=== PATIENT | female | born 1940 ===

== ENCOUNTER → 2024-01-05 | Outpatient (CLI) | payer MEDICARE, OTHER ==
[2024-01-05 16:16] LABS: Source, Urine Voided
[2024-01-05 17:02] LABS: Appearance, Urine Cloudy (Clear); Bilirubin, Urine Neg (Neg); Blood, Urine 2+ (Neg); Color, Urine Yellow (P-Yellow); Glucose Qualitative, Urine Neg (Neg); Ketones, Urine Neg (Neg); Leukocyte Esterase, Urine 3+ (Neg); Nitrite, Urine Neg (Neg); Protein, Urine 2+ (Neg); Specific Gravity, Urine 1.015 (1.003-1.022); Urobilinogen, Urine NORM (Normal)
[2024-01-05 17:41] LABS: Bacteria Many /hpf; Red Blood Cells, Urine 0-2 /hpf (0-2); Squamous Epithelial Cells Rare /hpf (Few); Transitional Epithelial Cells Rare /hpf (0-Rare); White Blood Cells, Urine TNTC /hpf (0-5)
== END | disposition home or self-care (01) ==
LOC: LAB SHORT 16:14
PROVIDERS: Family Medicine
DX: N39.0 Urinary tract infection, site not specified (principal)
CPT/HCPCS: 81001; 87077; 87086; 87186

== ENCOUNTER → 2024-03-15 | Outpatient (CLI) | payer MEDICARE, OTHER ==
[2024-03-15 13:44] LABS: Source, Urine Voided
[2024-03-15 15:19] LABS: Appearance, Urine Hazy (Clear); Bilirubin, Urine Neg (Neg); Blood, Urine 1+ (Neg); Color, Urine Yellow (P-Yellow); Glucose Qualitative, Urine Neg (Neg); Ketones, Urine Neg (Neg); Leukocyte Esterase, Urine 3+ (Neg); Nitrite, Urine Pos (Neg); Protein, Urine 1+ (Neg); Specific Gravity, Urine 1.015 (1.003-1.022); Urobilinogen, Urine NORM (Normal)
[2024-03-15 15:47] LABS: White Blood Cells, Urine TNTC /hpf (0-5)
[2024-03-15 15:51] LABS: Bacteria Many /hpf; Squamous Epithelial Cells Rare /hpf (Few); Transitional Epithelial Cells Rare /hpf (0-Rare)
== END ==
LOC: LAB SHORT 13:41 → LAB 13:41
PROVIDERS: Family Medicine
DX: N39.0 Urinary tract infection, site not specified (principal)
CPT/HCPCS: 81001; 87077; 87086; 87186

== ENCOUNTER → 2024-07-20 | Outpatient (CLI) | payer MEDICARE, OTHER ==
[2024-07-21 12:01] LABS: Source, Urine Voided
[2024-07-21 12:53] LABS: Appearance, Urine Turbid (Clear); Bilirubin, Urine Neg (Neg); Blood, Urine 3+ (Neg); Color, Urine Yellow (P-Yellow); Glucose Qualitative, Urine Neg (Neg); Ketones, Urine Neg (Neg); Leukocyte Esterase, Urine 3+ (Neg); Nitrite, Urine Neg (Neg); Protein, Urine 2+ (Neg); Specific Gravity, Urine 1.015 (1.003-1.022); Urobilinogen, Urine NORM (Normal)
[2024-07-21 13:03] LABS: White Blood Cells, Urine TNTC /hpf (0-5)
[2024-07-21 13:04] LABS: Bacteria Many /hpf; Renal Epithelial Rare /hpf (0-Rare); Squamous Epithelial Cells Few /hpf (Few)
== END ==
LOC: LAB SHORT 11:55 → LAB 11:55
PROVIDERS: Family Medicine
DX: N39.0 Urinary tract infection, site not specified (principal)
CPT/HCPCS: 81001; 87077; 87086; 87186

== ENCOUNTER → 2024-08-18 | Outpatient (CLI) | payer MEDICARE, OTHER ==
[2024-08-21 09:01] LABS: Source, Urine Clean Catch
[2024-08-21 09:15] LABS: Appearance, Urine Cloudy (Clear); Bilirubin, Urine Neg (Neg); Blood, Urine 3+ (Neg); Color, Urine Yellow (P-Yellow); Glucose Qualitative, Urine Neg (Neg); Ketones, Urine Neg (Neg); Leukocyte Esterase, Urine 3+ (Neg); Nitrite, Urine Neg (Neg); Protein, Urine 3+ (Neg); Urobilinogen, Urine NORM (Normal)
[2024-08-21 11:07] LABS: Bacteria Many /hpf; White Blood Cells, Urine TNTC /hpf (0-5)
[2024-08-21 11:11] LABS: Red Blood Cells, Urine 0-2 /hpf (0-2); Squamous Epithelial Cells Mod /hpf (Few)
== END ==
LOC: LAB SHORT 11:00 → LAB 11:00
PROVIDERS: Family Medicine
DX: N39.0 Urinary tract infection, site not specified (principal)
CPT/HCPCS: 81001; 87077; 87086; 87186

== ENCOUNTER → 2024-09-19 | Outpatient (CLI) | payer MEDICARE, OTHER ==
[2024-09-19 12:44] LABS: BASOPHILS ABSOLUTE AUTO 0.05 K/mm3 (0.00-0.23); BASOPHILS PERCENT AUTO 0 % (0-2); EOSINOPHILS ABSOLUTE AUTO 0.15 K/mm3 (0.00-0.68); EOSINOPHILS PERCENT AUTO 1 % (0-6); Hematocrit 30.8 % (33.0-51.0); Hemoglobin 9.6 g/dL (11.5-16.0); IMMATURE GRAN ABSOLUTE AUTO 0.06 K/mm3 (0.00-0.10); IMMATURE GRAN PERCENT AUTO 0 % (0-1); LYMPHOCYTES ABSOLUTE AUTO 1.91 K/mm3 (0.84-5.20); LYMPHOCYTES PERCENT AUTO 13 % (21-46); MONOCYTES ABSOLUTE AUTO 0.99 K/mm3 (0.16-1.47); MONOCYTES PERCENT AUTO 7 % (4-13); Mean Corpuscular HGB 29.4 pg (26.0-34.0); Mean Corpuscular HGB Conc 31.2 g/dL (31.5-36.5); Mean Corpuscular Volume 94 fL (80-100); Mean Platelet Volume 11.3 fL (9.1-12.4); NEUTROPHILS ABSOLUTE AUTO 11.44 K/mm3 (1.96-9.15); NEUTROPHILS PERCENT AUTO 78 % (41-73); Platelet Count 236 K/mm3 (150-400); RDW Coefficient Variation 14.9 % (11.7-14.2); RDW Standard Deviation 51.9 fL (35.1-46.3); Red Blood Cell Count 3.27 M/mm3 (3.80-5.20)
[2024-09-19 13:53] LABS: Alanine Aminotransfer (ALT/SGP 16 U/L (12-78); Albumin, Blood 3.2 g/dL (3.4-5.0); Albumin/Globulin Ratio 0.7 (0.8-1.8); Alk Phos 97 U/L (50-136); Anion Gap 14 mmol/L (3-11); Aspartate Aminotrans (AST/SGOT 12 U/L (12-37); Bilirubin, Total 0.3 mg/dL (0.1-1.0); Blood Urea Nitrogen 42 mg/dL (8-24); Bun/Creatinine Ratio 40.8 (12.0-20.0); CHOL/HDL RATIO 4.6; CO2, Blood 25 mmol/L (21-32); Calcium, Blood 8.9 mg/dL (8.5-10.1); Chloride, Blood 99 mmol/L (98-108); Cholesterol 212 mg/dL (50-200); Creatinine, Blood 1.03 mg/dL (0.40-1.00); Globulin, Blood 4.8 g/dL (2.2-4.0); Glomerular Filtration Rate 54 (60-); Glucose, Blood 225 mg/dL (70-99); HDL Cholesterol 46 mg/dL (>39); LDL/HDL RATIO 2.8; Low Density Lipoprotein Chol 128 mg/dL (0-110); Potassium, Blood 4.2 mmol/L (3.5-5.5); Sodium, Blood 134 mmol/L (136-145); Triglycerides 190 mg/dL (30-160); Very Low Density Lipoprot Chol 38 mg/dL (6-32)
== END | disposition home or self-care (01) ==
LOC: LAB 11:32 → LAB SHORT 11:32
PROVIDERS: Family Medicine
DX: I63.9 Cerebral infarction, unspecified (principal); E11.9 Type 2 diabetes mellitus without complications; E55.9 Vitamin D deficiency, unspecified
CPT/HCPCS: 80053; 80061; 82306; 83036; 84443; 85025

== ENCOUNTER → 2024-09-27 | Outpatient (CLI) | payer MEDICARE, OTHER ==
[2024-09-27 15:54] LABS: Source, Urine Clean Catch
[2024-09-27 19:07] LABS: Appearance, Urine Turbid (Clear); Bilirubin, Urine Neg (Neg); Blood, Urine 3+ (Neg); Glucose Qualitative, Urine Neg (Neg); Ketones, Urine Neg (Neg); Leukocyte Esterase, Urine 3+ (Neg); Nitrite, Urine Pos (Neg); Protein, Urine 2+ (Neg); Urobilinogen, Urine NORM (Normal)
[2024-09-27 20:30] LABS: Bacteria Many /hpf; Color, Urine Pale Yellow (P-Yellow); Mucus Light (0-Heavy); Red Blood Cells, Urine 0-2 /hpf (0-2); Squamous Epithelial Cells Few /hpf (Few); Transitional Epithelial Cells Rare /hpf (0-Rare); White Blood Cells, Urine TNTC /hpf (0-5)
== END ==
LOC: LAB 15:51 → LAB SHORT 15:51
PROVIDERS: Family Medicine
DX: N39.0 Urinary tract infection, site not specified (principal)
CPT/HCPCS: 81001; 87077; 87086; 87186

== ENCOUNTER → 2025-01-26 | Outpatient (CLI) | payer MEDICARE, OTHER ==
[2025-01-26 15:08] LABS: Bilirubin, Urine Neg (Neg); Color, Urine Yellow (P-Yellow); Glucose Qualitative, Urine Neg (Neg); Ketones, Urine Neg (Neg); Leukocyte Esterase, Urine 3+ (Neg); Protein, Urine 3+ (Neg); Specific Gravity, Urine 1.025 (1.003-1.022); Urobilinogen, Urine NORM (Normal)
[2025-01-26 15:19] LABS: White Blood Cells, Urine TNTC /hpf (0-5)
== END ==
LOC: LAB SHORT 14:39 → LAB 14:39
PROVIDERS: Family Medicine
DX: N39.0 Urinary tract infection, site not specified (principal)
CPT/HCPCS: 81001; 87077; 87086; 87186

== ENCOUNTER 2025-02-03 00:41 | Day surgery (SDC) | payer MEDICARE, OTHER ==
[2025-02-03] MEDS ORDERED: Ertapenem Sodium 1,000 MG in NS 50 ML IV SCH (01:00)
[2025-02-03 10:10] VITALS: BP 132/77
[2025-02-03] MEDS ORDERED: Acetaminophen650 M1 PO (11:12)
[2025-02-03] MEDS ORDERED: ALBU90OI INH (11:13)
[2025-02-03] MEDS ORDERED: CLOP75 PO (11:14)
[2025-02-03] MEDS ORDERED: ALUM-MAG HYDROX30 M1 PO (11:14)
[2025-02-03] MEDS ORDERED: [UNRECOGNIZED DRUG - OTHER] PO (11:15)
[2025-02-03] MEDS ORDERED: ESCITALOPRAM OX10 MG PO (11:15)
[2025-02-03] MEDS ORDERED: METF500 PO (11:16)
[2025-02-03] MEDS ORDERED: EUTHYROX88 MCG PO (11:16)
[2025-02-03] MEDS ORDERED: GLIP5 PO (11:16)
[2025-02-03] MEDS ORDERED: ONDA4 PO (11:17)
[2025-02-03] MEDS ORDERED: NYAMYC1513 TOP (11:17)
[2025-02-03] MEDS ORDERED: OMEP20ER PO (11:17)
[2025-02-03] MEDS ORDERED: VITAMIN D350 MC3 PO (11:18)
[2025-02-03] MEDS ORDERED: RISP.5 PO (11:18)
--- NOTE | 2025-02-03 11:22 | NUR ---
[facility]. PT IN WHEELCHAIR AND STATES SHE DOES NOT AMBULATE. PT REMAINED IN WHEELCHAIR THROUGH HER INFUSION APPT TODAY. PT SEEMS TO BE A POOR HISTORIAN OF HER HEALTHCARE INFORMATION. WHEN ASKED IF SHE HAD ANY MEDICATION ALLERGIES SHE SAID "NOT THAT I'M AWARE OF." RECORDS [facility] INDICATED ALLERGIES TO PCN, ARIPIRAZOLE, CHLORPROMAZINE, AND WOOL. PT RELUCTANT TO ANSWER QUESTIONS WHEN ASKED. PT RELUCTANT TO HAVE IV STARTED BUT EVENTUALLY GAVE ME PERMISSION TO PLACE IV. PAT IN ADMITTING CALLED [facility] FOR TRANSPORT BACK [facility] AT THE END OF THE PT'S APPT.
== END 2025-02-03 10:44 | disposition home or self-care (01) ==
LOC: ATC 00:41
DX: N39.0 Urinary tract infection, site not specified (principal); Z16.12 Extended spectrum beta lactamase (ESBL) resistance; E03.9 Hypothyroidism, unspecified; E11.9 Type 2 diabetes mellitus without complications; Z86.73 Personal history of transient ischemic attack (TIA), and cerebral infarction without residual deficits; Z79.02 Long term (current) use of antithrombotics/antiplatelets; Z79.890 Hormone replacement therapy; Z79.899 Other long term (current) drug therapy
CPT/HCPCS: 96365; J1335

== ENCOUNTER 2025-02-04 02:52 | Day surgery (SDC) | payer MEDICARE, OTHER ==
[~2025-02-04 02:52] MED LIST: ALBU90OI INH; ALUM-MAG HYDROX30 M1 PO; Acetaminophen650 M1 PO; CLOP75 PO; ESCITALOPRAM OX10 MG PO; EUTHYROX88 MCG PO; Ertapenem Sodium 1,000 MG in NS 50 ML IV SCH; GLIP5 PO; METF500 PO; NYAMYC1513 TOP; OMEP20ER PO; ONDA4 PO; RISP.5 PO; VITAMIN D350 MC3 PO; [UNRECOGNIZED DRUG - OTHER] PO
[2025-02-04 10:17] VITALS: BP 102/62
== END 2025-02-04 10:35 | disposition home or self-care (01) ==
LOC: ATC 02:52
DX: N39.0 Urinary tract infection, site not specified (principal); Z16.12 Extended spectrum beta lactamase (ESBL) resistance; L60.0 Ingrowing nail; B35.1 Tinea unguium; I69.398 Other sequelae of cerebral infarction; H53.9 Unspecified visual disturbance; E11.9 Type 2 diabetes mellitus without complications; E03.9 Hypothyroidism, unspecified; F32.A Depression, unspecified; R32 Unspecified urinary incontinence; Z66 Do not resuscitate; Z87.891 Personal history of nicotine dependence; Z79.890 Hormone replacement therapy; Z79.02 Long term (current) use of antithrombotics/antiplatelets; Z79.84 Long term (current) use of oral hypoglycemic drugs; Z79.899 Other long term (current) drug therapy; Z88.0 Allergy status to penicillin; Z88.8 Allergy status to other drugs, medicaments and biological substances
CPT/HCPCS: 96365; J1335

== ENCOUNTER 2025-02-05 10:03 | Day surgery (SDC) | payer MEDICARE, OTHER ==
[2025-02-05 10:12] VITALS: BP 111/59
== END 2025-02-05 10:30 | disposition home or self-care (01) ==
LOC: ATC 10:03
DX: N39.0 Urinary tract infection, site not specified (principal); Z16.12 Extended spectrum beta lactamase (ESBL) resistance; L60.0 Ingrowing nail; B35.1 Tinea unguium; I69.398 Other sequelae of cerebral infarction; H53.9 Unspecified visual disturbance; E11.9 Type 2 diabetes mellitus without complications; F32.A Depression, unspecified; E03.9 Hypothyroidism, unspecified; R32 Unspecified urinary incontinence; Z66 Do not resuscitate; Z87.891 Personal history of nicotine dependence; Z79.890 Hormone replacement therapy; Z79.84 Long term (current) use of oral hypoglycemic drugs; Z79.899 Other long term (current) drug therapy; Z79.02 Long term (current) use of antithrombotics/antiplatelets; Z88.0 Allergy status to penicillin; Z88.8 Allergy status to other drugs, medicaments and biological substances; Z91.048 Other nonmedicinal substance allergy status
CPT/HCPCS: 96365; J1335

== ENCOUNTER 2025-02-06 01:59 | Day surgery (SDC) | payer MEDICARE, OTHER ==
[2025-02-06 10:31] VITALS: BP 138/64
== END 2025-02-06 10:55 | disposition home or self-care (01) ==
LOC: ATC 01:59
DX: N39.0 Urinary tract infection, site not specified (principal); Z16.12 Extended spectrum beta lactamase (ESBL) resistance; L60.0 Ingrowing nail; B35.1 Tinea unguium; I69.398 Other sequelae of cerebral infarction; H53.9 Unspecified visual disturbance; F32.A Depression, unspecified; E03.9 Hypothyroidism, unspecified; E11.9 Type 2 diabetes mellitus without complications; R32 Unspecified urinary incontinence; Z79.84 Long term (current) use of oral hypoglycemic drugs; Z79.899 Other long term (current) drug therapy; Z79.890 Hormone replacement therapy; Z88.0 Allergy status to penicillin; Z88.8 Allergy status to other drugs, medicaments and biological substances
CPT/HCPCS: 96365; J1335

== ENCOUNTER 2025-02-07 02:57 | Day surgery (SDC) | payer MEDICARE, OTHER ==
[2025-02-07 09:40] VITALS: BP 145/57
== END 2025-02-07 10:11 | disposition home or self-care (01) ==
LOC: ATC 02:57
DX: N39.0 Urinary tract infection, site not specified (principal); L60.0 Ingrowing nail; B35.1 Tinea unguium; I69.398 Other sequelae of cerebral infarction; H53.9 Unspecified visual disturbance; E03.9 Hypothyroidism, unspecified; R32 Unspecified urinary incontinence; E11.3511 Type 2 diabetes mellitus with proliferative diabetic retinopathy with macular edema, right eye; E43 Unspecified severe protein-calorie malnutrition; E78.5 Hyperlipidemia, unspecified; F03.918 Unspecified dementia, unspecified severity, with other behavioral disturbance; I10 Essential (primary) hypertension; K21.9 Gastro-esophageal reflux disease without esophagitis; K22.5 Diverticulum of esophagus, acquired; R25.1 Tremor, unspecified; R62.7 Adult failure to thrive; Z16.12 Extended spectrum beta lactamase (ESBL) resistance; Z66 Do not resuscitate; Z79.02 Long term (current) use of antithrombotics/antiplatelets; Z79.84 Long term (current) use of oral hypoglycemic drugs; Z79.890 Hormone replacement therapy; Z79.899 Other long term (current) drug therapy; Z88.0 Allergy status to penicillin; Z88.8 Allergy status to other drugs, medicaments and biological substances; Z91.048 Other nonmedicinal substance allergy status
CPT/HCPCS: 96365; J1335

== ENCOUNTER 2025-02-08 00:44 | Day surgery (SDC) | payer MEDICARE, OTHER ==
[~2025-02-08 00:44] MED LIST changes: -Ertapenem Sodium 1,000 MG in NS 50 ML IV SCH
[2025-02-08] MEDS ORDERED: Ertapenem Sodium 1,000 MG in NS 50 ML IV SCH (01:00)
[2025-02-08 10:08] VITALS: BP 97/50
--- NOTE | 2025-02-08 11:29 | NUR ---
CALLED [facility] AT 1015 FOR TRANSPORTATION BACK [facility]. ADVISED PT WOULD BE READY AT 1030. TOOK PT VIA HER WHEELCHAIR TO [facility]K IN HOSPITAL LOBBY AND TRANSPORTATION HAD NOT ARRIVED. PT TO WAIT IN HER WHEELCHAIR FOR THEIR ARRIVAL.
== END 2025-02-08 10:30 | disposition home or self-care (01) ==
LOC: ATC 00:44
DX: N39.0 Urinary tract infection, site not specified (principal); L60.0 Ingrowing nail; B35.1 Tinea unguium; I69.398 Other sequelae of cerebral infarction; H53.9 Unspecified visual disturbance; E03.9 Hypothyroidism, unspecified; R32 Unspecified urinary incontinence; E11.3511 Type 2 diabetes mellitus with proliferative diabetic retinopathy with macular edema, right eye; E43 Unspecified severe protein-calorie malnutrition; E78.5 Hyperlipidemia, unspecified; F03.918 Unspecified dementia, unspecified severity, with other behavioral disturbance; I10 Essential (primary) hypertension; K21.9 Gastro-esophageal reflux disease without esophagitis; K22.5 Diverticulum of esophagus, acquired; R25.1 Tremor, unspecified; R62.7 Adult failure to thrive; Z16.12 Extended spectrum beta lactamase (ESBL) resistance; Z66 Do not resuscitate; Z79.02 Long term (current) use of antithrombotics/antiplatelets; Z79.84 Long term (current) use of oral hypoglycemic drugs; Z79.890 Hormone replacement therapy; Z79.899 Other long term (current) drug therapy; Z88.0 Allergy status to penicillin; Z88.8 Allergy status to other drugs, medicaments and biological substances; Z91.048 Other nonmedicinal substance allergy status
CPT/HCPCS: 96365; J1335

== ENCOUNTER 2025-02-09 03:44 | Day surgery (SDC) | payer MEDICARE, OTHER ==
[~2025-02-09 03:44] MED LIST changes: +Ertapenem Sodium 1,000 MG in NS 50 ML IV SCH
[2025-02-09 10:06] VITALS: BP 119/61
--- NOTE | 2025-02-13 18:35 | NUR ---
ERTAPENEM START TIME: 9:50 STOP TIME: 10:05
== END 2025-02-09 10:10 | disposition home or self-care (01) ==
LOC: ATC 03:44
DX: N39.0 Urinary tract infection, site not specified (principal); B96.1 Klebsiella pneumoniae [K. pneumoniae] as the cause of diseases classified elsewhere; Z16.12 Extended spectrum beta lactamase (ESBL) resistance; B35.1 Tinea unguium; E11.9 Type 2 diabetes mellitus without complications; I69.398 Other sequelae of cerebral infarction; H53.9 Unspecified visual disturbance; F32.A Depression, unspecified; E03.9 Hypothyroidism, unspecified; R32 Unspecified urinary incontinence; Z66 Do not resuscitate; Z87.891 Personal history of nicotine dependence; Z79.890 Hormone replacement therapy; Z79.02 Long term (current) use of antithrombotics/antiplatelets; Z79.899 Other long term (current) drug therapy; Z88.0 Allergy status to penicillin; Z88.8 Allergy status to other drugs, medicaments and biological substances; Z91.09 Other allergy status, other than to drugs and biological substances
CPT/HCPCS: 96365; J1335

== ENCOUNTER 2025-02-10 03:23 | Emergency (ER) | payer MEDICARE, OTHER ==
[~2025-02-10] VITALS: Ht 157.5 cm; Wt 72.6 kg
[~2025-02-10 03:23] MED LIST changes: -Ertapenem Sodium 1,000 MG in NS 50 ML IV SCH
[2025-02-10 04:06] LABS: Alanine Aminotransfer (ALT/SGP 11.0 U/L (12-78); Albumin, Blood 2.7 g/dL (3.4-5.0); Albumin/Globulin Ratio 0.6 (0.8-1.8); Anion Gap 10.0 mmol/L (3-11); Aspartate Aminotrans (AST/SGOT 10.0 U/L (12-37); Bilirubin, Total 0.2 mg/dL (0.1-1.0); Blood Urea Nitrogen 25.0 mg/dL (8-24); CO2, Blood 25.0 mmol/L (21-32); Calcium, Blood 8.1 mg/dL (8.5-10.1); Chloride, Blood 105.0 mmol/L (98-108); Creatinine, Blood 1.42 mg/dL (0.40-1.00); Globulin, Blood 4.4 g/dL (2.2-4.0); Glucose, Blood 104.0 mg/dL (70-99); Potassium, Blood 4.7 mmol/L (3.5-5.5); Sodium, Blood 135.0 mmol/L (136-145); Total Protein, Blood 7.1 g/dL (6.4-8.2)
[2025-02-10 05:01] LABS: BASOPHILS ABSOLUTE AUTO 0.02 K/mm3 (0.00-0.23); BASOPHILS PERCENT AUTO 0 % (0-2); EOSINOPHILS ABSOLUTE AUTO 0.24 K/mm3 (0.00-0.68); EOSINOPHILS PERCENT AUTO 2 % (0-6); Hematocrit 25.4 % (33.0-51.0); Hemoglobin 8.1 g/dL (11.5-16.0); IMMATURE GRAN ABSOLUTE AUTO 0.07 K/mm3 (0.00-0.10); IMMATURE GRAN PERCENT AUTO 1 % (0-1); LYMPHOCYTES ABSOLUTE AUTO 1.53 K/mm3 (0.84-5.20); LYMPHOCYTES PERCENT AUTO 15 % (21-46); MONOCYTES ABSOLUTE AUTO 1.02 K/mm3 (0.16-1.47); MONOCYTES PERCENT AUTO 10 % (4-13); Mean Corpuscular HGB Conc 31.9 g/dL (31.5-36.5); Mean Corpuscular Volume 88 fL (80-100); NEUTROPHILS ABSOLUTE AUTO 7.51 K/mm3 (1.96-9.15); NEUTROPHILS PERCENT AUTO 72 % (41-73); NRBC ABSOLUTE 0.00 K/mm3 (0.00-0.02); NRBC Auto 0.0 /100 WBC (0.0-0.2); Platelet Count 219 K/mm3 (150-400); RDW Coefficient Variation 15.4 % (11.7-14.2); RDW Standard Deviation 49.2 fL (35.1-46.3)
== END 2025-02-10 09:30 | disposition home or self-care (01) ==
LOC: ER 03:23
PROVIDERS: Emergency Medicine; Physician Assistant
DX: M25.551 Pain in right hip (principal); Z88.8 Allergy status to other drugs, medicaments and biological substances; Z88.0 Allergy status to penicillin; Z79.2 Long term (current) use of antibiotics; Z79.899 Other long term (current) drug therapy; Z79.84 Long term (current) use of oral hypoglycemic drugs
CPT/HCPCS: 70450; 72170; 80053; 85025; 93005; 93010; 99285-25

== ENCOUNTER → 2025-03-13 | Outpatient (CLI) | payer MEDICARE, OTHER ==
[~2025-03-13] MED LIST changes: +ATOR20 PO; +CEPH500 PO; +LOPE2C PO; +NASAL SPRAY88 ML; +PANT40 PO; +Prinivil10 MG PO; +VISBIOME 112.51 EACH PO; +[UNRECOGNIZED DRUG - OTHER] PO
[2025-03-13 13:27] LABS: Bilirubin, Urine Neg (Neg); Glucose Qualitative, Urine Neg (Neg); Ketones, Urine Neg (Neg); Leukocyte Esterase, Urine 3+ (Neg); Protein, Urine 3+ (Neg); Specific Gravity, Urine 1.015 (1.003-1.022); Urobilinogen, Urine NORM (Normal)
[2025-03-13 13:45] LABS: Color, Urine Pale Yellow (P-Yellow)
[2025-03-13 13:47] LABS: White Blood Cells, Urine TNTC /hpf (0-5)
== END ==
LOC: LAB SHORT 12:33 → LAB 12:33
PROVIDERS: Family Medicine
DX: N39.0 Urinary tract infection, site not specified (principal)
CPT/HCPCS: 81001; 87077; 87086; 87186

== ENCOUNTER 2025-03-16 14:36 | Inpatient (IN) | payer MEDICARE, OTHER ==
[~2025-03-16] VITALS: Ht 152.4 cm; Wt 67.0 kg
[~2025-03-16 14:36] MED LIST changes: -ATOR20 PO; -CEPH500 PO; -LOPE2C PO; -NASAL SPRAY88 ML; -PANT40 PO; -Prinivil10 MG PO; -VISBIOME 112.51 EACH PO; -[UNRECOGNIZED DRUG - OTHER] PO
[2025-03-16] MEDS ORDERED: FLU VACC TS2025(65UP)/MF59C/PF 45 MCG/0.5 ML SYRINGE IM SCH (16:10)
[2025-03-16 16:12] VITALS: BP 108/56
[2025-03-16] MEDS ORDERED: Insulin Regular 100 UNIT/ML 10ML Vial SC SCH (16:30)
[2025-03-16] MEDS ORDERED: Pantoprazole Sodium 40 MG Injection IV SCH (16:30)
[2025-03-16 16:59] LABS: BASOPHILS ABSOLUTE AUTO 0.03 K/mm3 (0.00-0.23); BASOPHILS PERCENT AUTO 0 % (0-2); EOSINOPHILS ABSOLUTE AUTO 0.20 K/mm3 (0.00-0.68); EOSINOPHILS PERCENT AUTO 2 % (0-6); Hematocrit 31.0 % (33.0-51.0); Hemoglobin 9.5 g/dL (11.5-16.0); IMMATURE GRAN ABSOLUTE AUTO 0.03 K/mm3 (0.00-0.10); IMMATURE GRAN PERCENT AUTO 0 % (0-1); LYMPHOCYTES ABSOLUTE AUTO 1.92 K/mm3 (0.84-5.20); LYMPHOCYTES PERCENT AUTO 15 % (21-46); MONOCYTES ABSOLUTE AUTO 1.00 K/mm3 (0.16-1.47); MONOCYTES PERCENT AUTO 8 % (4-13); Mean Corpuscular HGB Conc 30.6 g/dL (31.5-36.5); Mean Corpuscular Volume 92 fL (80-100); NEUTROPHILS ABSOLUTE AUTO 9.97 K/mm3 (1.96-9.15); NEUTROPHILS PERCENT AUTO 76 % (41-73); NRBC ABSOLUTE 0.00 K/mm3 (0.00-0.02); NRBC Auto 0.0 /100 WBC (0.0-0.2); Platelet Count 250 K/mm3 (150-400); RDW Coefficient Variation 15.6 % (11.7-14.2); RDW Standard Deviation 52.3 fL (35.1-46.3)
[2025-03-16] MEDS ORDERED: CefTRIAXone Sodium 1,000 MG in NS 100 ML IV SCH (18:00)
[2025-03-16 18:08] LABS: Ferritin, Serum 12 ng/mL (8-252); Thyroid Stimulating Hormone 5.410 uIU/mL (0.360-4.800); Total Iron Binding Capacity 363 ug/dL (250-450)
[2025-03-16 18:09] LABS: Alanine Aminotransfer (ALT/SGP 20 U/L (12-78); Albumin, Blood 3.1 g/dL (3.4-5.0); Albumin/Globulin Ratio 0.7 (0.8-1.8); Anion Gap 12 mmol/L (3-11); Aspartate Aminotrans (AST/SGOT 10 U/L (12-37); Bilirubin, Total 0.2 mg/dL (0.1-1.0); Blood Urea Nitrogen 22 mg/dL (8-24); CHOL/HDL RATIO 4.4; CO2, Blood 25 mmol/L (21-32); Calcium, Blood 9.3 mg/dL (8.5-10.1); Chloride, Blood 101 mmol/L (98-108); Cholesterol 202 mg/dL (50-200); Creatinine, Blood 1.28 mg/dL (0.40-1.00); Globulin, Blood 4.4 g/dL (2.2-4.0); Glucose, Blood 134 mg/dL (70-99); HDL Cholesterol 46 mg/dL (>39); LDL/HDL RATIO 2.6; Low Density Lipoprotein Chol 118 mg/dL (0-110); Potassium, Blood 4.3 mmol/L (3.5-5.5); Sodium, Blood 134 mmol/L (136-145); Total Protein, Blood 7.5 g/dL (6.4-8.2); Triglycerides 189 mg/dL (30-160); Very Low Density Lipoprot Chol 37 mg/dL (6-32)
[2025-03-16] MEDS ORDERED: Sod Ferric Gluc Complx/Sucrose 125 MG in NS 100 ML IV SCH (19:00)
--- NOTE | 2025-03-16 19:37 | NUR ---
END OF SHIFT SUMMARY: ADMITTED DIRECT ADMIT UNDER CARE OF DR. AREVALO. [facility] FROM [facility]. INITIALLY ACCOMPANIED BY RCC, KAL. DAUGHTER, LETICIA, CAME TO VISIT, WELL. A&Ox4. PLEASANT AND COOPERATIVE WITH CARE, THOUGH DOES REQUIRES SOME ENCOURAGEMENT SHE IS UNMOTIVATED TO PARTICIPATE IN MOST CARE, ACCORDING TO DAUGHTER AND FACILITY RCC. CALLS APPROPRIATELY AND IS ABLE TO ADVOCATE NEEDS EFFECTIVELY. 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 FULL DENTURES OF WHICH SHE REFUSES TO REMOVE FOR CLEANING; RCC STATES, "SHE NEVER TAKES THEM OUT". VSS. TELE STRIP UPON INITIATION OF TELEMTRY SINUS IN 80s. CRITICAL RESULT OF LACTIC ACID OF 3.1. PROVIDER NOTIFIED; STARTED LR 100mL/hr. BLOOD Cx DRAWN. C/O DYSURIA. UNABLE TO OBTAIN UA D/T URINARY INCONTINENCE. T.O. FOR STRAIGHT CATH AND OBTAIN URINE SPECIMEN FOR UA c C&S. ORDER PLACED. CLINICAL NUTRITION MANAGER NURSE NOTIFIED. BREATHING EVEN AND UNLABORED c RA. CONTINENT/INCONTINENT BOWEL c ATTENDS IN PLACE. CLEAR LIQUID AND CChO DIET ORDERED, BUT HAS BEEN UNINTERESTED IN PO INTAKE EXCEPT FOR WATER. NO C/ ABD PAIN, THOUGH ABD IS MODERATELY DISTENDED AND FAIRLY FIRM. LBM 03/15/25 ACCORDING OT PATIENT WHO IS A POOR HISTORIAN. AMBULATES VIA W/C AND PERSON W/C IS IN ROOM. S/P 1-2PA c FWW&GB TO BSC FOR BM. MEDS WHOLE c FLUIDS. BED IN LOWEST POSITION, CALL LIGHT WITHIN REACH, ALL NEEDS MET. REPORT TO ONCOMING NURSE.
[2025-03-16] MEDS ORDERED: NS 250 ML IV PRN (19:45)
[2025-03-16 19:59] VITALS: BP 140/64
[2025-03-16] MEDS ORDERED: NASAL SPRAY88 ML (20:02)
[2025-03-16] MEDS ORDERED: LOPE2C PO (20:04)
[2025-03-16] MEDS ORDERED: [UNRECOGNIZED DRUG - OTHER] PO (20:11)
[2025-03-16] MEDS ORDERED: Lactobacil 2-S.Thermo-Bifido 1 1 Cap PO SCH (21:00)
[2025-03-17 00:09] VITALS: BP 175/61
[2025-03-17 00:18] LABS: Source, Urine Clean Catch
[2025-03-17 00:24] LABS: Bilirubin, Urine Neg (Neg); Glucose Qualitative, Urine Neg (Neg); Ketones, Urine Neg (Neg); Leukocyte Esterase, Urine 3+ (Neg); Protein, Urine 3+ (Neg); Specific Gravity, Urine 1.010 (1.003-1.022); Urobilinogen, Urine NORM (Normal)
[2025-03-17 00:32] LABS: Color, Urine Yellow (P-Yellow)
[2025-03-17 00:33] LABS: Red Blood Cells, Urine 0-2 /hpf (0-2); White Blood Cells, Urine TNTC /hpf (0-5)
[2025-03-17 04:29] VITALS: BP 145/55
[2025-03-17 04:30] LABS: BASOPHILS ABSOLUTE AUTO 0.03 K/mm3 (0.00-0.23); BASOPHILS PERCENT AUTO 0 % (0-2); EOSINOPHILS ABSOLUTE AUTO 0.23 K/mm3 (0.00-0.68); EOSINOPHILS PERCENT AUTO 2 % (0-6); Hematocrit 27.4 % (33.0-51.0); Hemoglobin 8.9 g/dL (11.5-16.0); IMMATURE GRAN ABSOLUTE AUTO 0.03 K/mm3 (0.00-0.10); IMMATURE GRAN PERCENT AUTO 0 % (0-1); LYMPHOCYTES ABSOLUTE AUTO 1.85 K/mm3 (0.84-5.20); LYMPHOCYTES PERCENT AUTO 18 % (21-46); MONOCYTES ABSOLUTE AUTO 1.08 K/mm3 (0.16-1.47); MONOCYTES PERCENT AUTO 11 % (4-13); Mean Corpuscular HGB Conc 32.5 g/dL (31.5-36.5); Mean Corpuscular Volume 86 fL (80-100); NEUTROPHILS ABSOLUTE AUTO 7.01 K/mm3 (1.96-9.15); NEUTROPHILS PERCENT AUTO 69 % (41-73); NRBC ABSOLUTE 0.00 K/mm3 (0.00-0.02); NRBC Auto 0.0 /100 WBC (0.0-0.2); Platelet Count 222 K/mm3 (150-400); RDW Coefficient Variation 15.2 % (11.7-14.2); RDW Standard Deviation 48.1 fL (35.1-46.3)
--- NOTE | 2025-03-17 04:42 | NUR ---
PATIENT WAS RESISTANT TO ANY CARE THAT WAS NEEDED. SHE RESISTED TO THE ORDERED STRAIGT CATH INITIALLY BUT THEN DECIDED IT WAS OKAY. SHE WAS UNHAPPY ABOUT ALL OF THE BLOOD DRAWS AND MADE THAT VERY APPARENT TO ALL STAFF HOWEVER SHE WAS ABLE TO BE TALKED THRU THE PROCESS AND EVENTUALLY AGREED. THE ONLY CARE SHE DID NOT AGREE TO WAS CREAM ON HER NATHANIEL AREA D/T SOME REDNESS THAT WE NOTICED. WE SWITCHED PATIENT FROM PULL UPS TO ATTENDS D/T HER BEING BEDBOUND AND THE DIFFICULTY TO CHANGE A PULL UP IN THE BED. LR RUNNING. BED IN LOW POSITON. BED EXIT ALARM INITIATED. CALL HERRERA AND POSESSIONS WITHIN REACH. NO ACUTE EVENTS.
[2025-03-17 05:00] LABS: Anion Gap 8.0 mmol/L (3-11); Blood Urea Nitrogen 17.0 mg/dL (8-24); CO2, Blood 28.0 mmol/L (21-32); Calcium, Blood 8.9 mg/dL (8.5-10.1); Chloride, Blood 101.0 mmol/L (98-108); Creatinine, Blood 0.99 mg/dL (0.40-1.00); Glucose, Blood 107.0 mg/dL (70-99); Potassium, Blood 4.0 mmol/L (3.5-5.5); Sodium, Blood 133.0 mmol/L (136-145)
[2025-03-17 07:12] VITALS: BP 181/75
[2025-03-17 09:36] LABS: Stool Occult Blood Guaiac 1 Neg (Neg)
[2025-03-17 11:19] VITALS: BP 187/74
[2025-03-17] MEDS ORDERED: Miconazole Nitrate 2% 85 GM PWD TOP SCH (14:00)
[2025-03-17 15:24] VITALS: BP 132/65
[2025-03-17 19:26] VITALS: BP 145/62
--- NOTE | 2025-03-17 19:56 | NUR ---
PT STOOL SAMPLE CAME BACK NEGATIVE FOR BLOOD. GI CONSULTED, PT REFUSED COLONOSCOPY. PT REFUSED PROBIOTIC, AND NYSTATIN POWDER. IV ABX CONTINUED. PT ABLE TO MAKE NEEDS KNOWN, CALL LIGHT IN REACH
[2025-03-18 00:05] VITALS: BP 193/75
--- NOTE | 2025-03-18 03:54 | NUR ---
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
[2025-03-18 04:14] VITALS: BP 180/74
[2025-03-18 05:02] LABS: BASOPHILS ABSOLUTE AUTO 0.02 K/mm3 (0.00-0.23); BASOPHILS PERCENT AUTO 0 % (0-2); EOSINOPHILS ABSOLUTE AUTO 0.32 K/mm3 (0.00-0.68); EOSINOPHILS PERCENT AUTO 4 % (0-6); Hematocrit 29.2 % (33.0-51.0); Hemoglobin 9.4 g/dL (11.5-16.0); IMMATURE GRAN ABSOLUTE AUTO 0.05 K/mm3 (0.00-0.10); IMMATURE GRAN PERCENT AUTO 1 % (0-1); LYMPHOCYTES ABSOLUTE AUTO 1.83 K/mm3 (0.84-5.20); LYMPHOCYTES PERCENT AUTO 23 % (21-46); MONOCYTES ABSOLUTE AUTO 1.07 K/mm3 (0.16-1.47); MONOCYTES PERCENT AUTO 13 % (4-13); Mean Corpuscular HGB Conc 32.2 g/dL (31.5-36.5); Mean Corpuscular Volume 87 fL (80-100); NEUTROPHILS ABSOLUTE AUTO 4.77 K/mm3 (1.96-9.15); NEUTROPHILS PERCENT AUTO 59 % (41-73); NRBC ABSOLUTE 0.00 K/mm3 (0.00-0.02); NRBC Auto 0.0 /100 WBC (0.0-0.2); Platelet Count 231 K/mm3 (150-400); RDW Coefficient Variation 15.3 % (11.7-14.2); RDW Standard Deviation 48.8 fL (35.1-46.3)
[2025-03-18 06:02] LABS: Anion Gap 8.0 mmol/L (3-11); Blood Urea Nitrogen 16.0 mg/dL (8-24); CO2, Blood 29.0 mmol/L (21-32); Calcium, Blood 8.9 mg/dL (8.5-10.1); Chloride, Blood 101.0 mmol/L (98-108); Creatinine, Blood 0.93 mg/dL (0.40-1.00); Glucose, Blood 111.0 mg/dL (70-99); Potassium, Blood 4.3 mmol/L (3.5-5.5); Sodium, Blood 134.0 mmol/L (136-145)
[2025-03-18 07:32] VITALS: BP 196/86
[2025-03-18] MEDS ORDERED: Cholecalciferol 1000 Unit Tablet (=25MCG) PO SCH (09:00)
[2025-03-18] MEDS ORDERED: HydrALAZINE HCl 20 MG / ML 1ML Vial IV PRN (11:15)
[2025-03-18 11:36] VITALS: BP 173/76
[2025-03-18 16:01] VITALS: BP 167/77
--- NOTE | 2025-03-18 18:16 | NUR ---
SHIFT SUMMARY PT A&OX4, HTN, PRN HYDRALOZINE GIVEN X1 WITH LITTLE EFFECT. NO ACUTE CHANGES THIS SHIFT. PLAN TO DC TOMORROW BACK [facility]. ABLE TO MAKE NEEDS KNOWN, CALL LIGHT IN REACH.
[2025-03-18 19:19] VITALS: BP 146/73
[2025-03-19 04:12] VITALS: BP 171/66
--- NOTE | 2025-03-19 06:49 | NUR ---
PT C/O SAHNI AND ANXIETY, MEDICATION GIVEN RX. SHE SLEPT T/O THE SHIT NO ACUTE CHANGES WERE NOTED.
--- NOTE | 2025-03-19 06:51 | NUR ---
PT EFUSED MEDICATIONS, WAS WITHDRAWN WITH A FLAT AFFECT. PT SLEPT T/O THE SHIFT. INCONTINENT OF URINE AND STOOL.
[2025-03-19 07:51] VITALS: BP 140/75
[2025-03-19] MEDS ORDERED: ATOR20 PO (11:20)
[2025-03-19] MEDS ORDERED: Prinivil10 MG PO (11:21)
[2025-03-19] MEDS ORDERED: VISBIOME 112.51 EACH PO (11:21)
[2025-03-19] MEDS ORDERED: CEPH500 PO (11:21)
[2025-03-19] MEDS ORDERED: PANT40 PO (11:22)
[2025-03-19] MEDS ORDERED: CLOP75 PO (11:22)
[2025-03-19 14:49] VITALS: BP 107/59
--- NOTE | 2025-03-19 15:50 | NUR ---
PT DISCHARGED BACK TO [facility]. ALL VALUABLES RETURNED AND SENT WITH THE PT. DISCHARGE INTRUCTIONS PROVIDED AND EDUCATED ON AT TIME OF DICHARGE. [facility] CALLED AND NOTIFIED OF PT'S RETURN.
== END 2025-03-19 15:57 | disposition home or self-care (01) | DRG 872 ==
LOC: MEDS 14:36 → ENPENDDIS 03-19 10:01 → MEDS 03-19 15:57
PROVIDERS: ADMIT Family Medicine
DX: A41.51 Sepsis due to Escherichia coli [E. coli] (principal); K92.1 Melena; E87.1 Hypo-osmolality and hyponatremia; N30.00 Acute cystitis without hematuria; R65.20 Severe sepsis without septic shock; N18.30 Chronic kidney disease, stage 3 unspecified; D63.1 Anemia in chronic kidney disease; E11.22 Type 2 diabetes mellitus with diabetic chronic kidney disease; Z66 Do not resuscitate; I12.9 Hypertensive chronic kidney disease with stage 1 through stage 4 chronic kidney disease, or unspecified chronic kidney disease; E78.5 Hyperlipidemia, unspecified; D50.9 Iron deficiency anemia, unspecified; E03.9 Hypothyroidism, unspecified; R54 Age-related physical debility; Z90.89 Acquired absence of other organs; Z90.2 Acquired absence of lung [part of]; Z79.899 Other long term (current) drug therapy; Z79.84 Long term (current) use of oral hypoglycemic drugs; Z79.890 Hormone replacement therapy; Z88.0 Allergy status to penicillin; Z88.8 Allergy status to other drugs, medicaments and biological substances
CPT/HCPCS: 36415; 74177; 80048; 80053; 80061; 81001; 82272; 82607; 82728; 82746; 82947; 83036; 83540; 83550; 83605; 84439; 84443; 84481; 85025; 87040; 87077; 87086; 87186; A9270; J0360; J0696; J2470; J2916; J7050; J7120; Q9967

== ENCOUNTER 2025-04-27 08:16 | Inpatient (IN) | payer MEDICARE, OTHER ==
[~2025-04-27] VITALS: Ht 157.5 cm; Wt 65.1 kg
[~2025-04-27 08:16] MED LIST changes: +ATOR20 PO; +CEPH500 PO; +LOPE2C PO; +NASAL SPRAY88 ML; +PANT40 PO; +Prinivil10 MG PO; +VISBIOME 112.51 EACH PO; +[UNRECOGNIZED DRUG - OTHER] PO
[2025-04-27 08:57] LABS: BASOPHILS ABSOLUTE AUTO 0.02 K/mm3 (0.00-0.23); BASOPHILS PERCENT AUTO 0 % (0-2); EOSINOPHILS ABSOLUTE AUTO 0.01 K/mm3 (0.00-0.68); EOSINOPHILS PERCENT AUTO 0 % (0-6); Hematocrit 36.4 % (33.0-51.0); Hemoglobin 11.7 g/dL (11.5-16.0); IMMATURE GRAN ABSOLUTE AUTO 0.15 K/mm3 (0.00-0.10); IMMATURE GRAN PERCENT AUTO 1 % (0-1); LYMPHOCYTES ABSOLUTE AUTO 1.02 K/mm3 (0.84-5.20); LYMPHOCYTES PERCENT AUTO 6 % (21-46); MONOCYTES ABSOLUTE AUTO 0.74 K/mm3 (0.16-1.47); MONOCYTES PERCENT AUTO 4 % (4-13); Mean Corpuscular HGB Conc 32.1 g/dL (31.5-36.5); Mean Corpuscular Volume 90 fL (80-100); NEUTROPHILS ABSOLUTE AUTO 14.88 K/mm3 (1.96-9.15); NEUTROPHILS PERCENT AUTO 88 % (41-73); NRBC ABSOLUTE 0.00 K/mm3 (0.00-0.02); NRBC Auto 0.0 /100 WBC (0.0-0.2); Platelet Count 261 K/mm3 (150-400); RDW Coefficient Variation 16.3 % (11.7-14.2); RDW Standard Deviation 53.2 fL (35.1-46.3)
[2025-04-27 09:02] LABS: Source, Urine Straight Cath
[2025-04-27 09:06] LABS: Bilirubin, Urine Neg (Neg); Color, Urine Yellow (P-Yellow); Glucose Qualitative, Urine Neg (Neg); Ketones, Urine 2+ (Neg); Leukocyte Esterase, Urine 2+ (Neg); Protein, Urine 4+ (Neg); Specific Gravity, Urine 1.010 (1.003-1.022); Urobilinogen, Urine NORM (Normal)
[2025-04-27 09:10] LABS: Alanine Aminotransfer (ALT/SGP 19.0 U/L (12-78); Albumin, Blood 3.5 g/dL (3.4-5.0); Albumin/Globulin Ratio 0.7 (0.8-1.8); Anion Gap 16.0 mmol/L (3-11); Aspartate Aminotrans (AST/SGOT 14.0 U/L (12-37); Bilirubin, Total 0.5 mg/dL (0.1-1.0); Blood Urea Nitrogen 17.0 mg/dL (8-24); CO2, Blood 24.0 mmol/L (21-32); Calcium, Blood 9.0 mg/dL (8.5-10.1); Chloride, Blood 95.0 mmol/L (98-108); Creatinine, Blood 0.91 mg/dL (0.40-1.00); Globulin, Blood 5.3 g/dL (2.2-4.0); Glucose, Blood 230.0 mg/dL (70-99); Potassium, Blood 4.1 mmol/L (3.5-5.5); Sodium, Blood 131.0 mmol/L (136-145); Total Protein, Blood 8.8 g/dL (6.4-8.2)
[2025-04-27 09:35] LABS: White Blood Cells, Urine 25-50 /hpf (0-5)
[2025-04-27] MEDS ORDERED: NS 1,000 ML IV SCH (09:35)
[2025-04-27 09:36] LABS: U Amphetamine Screen Not Detected; U Barbiturate Screen Not Detected; U Benzodiazapine Screen Not Detected; U Buprenorphine Screen Not Detected; U Cannabinoids Screen Not Detected; U Cocaine Screen Not Detected; U Methadone Screen Not Detected; U Methamphetamine Screen Not Detected; U Opiates Screen Not Detected; U Oxycodone Screen Not Detected; U Phencyclidine Screen Not Detected
[2025-04-27] MEDS ORDERED: Midazolam HCl 1MG / ML 2ML Vial IV ONE (09:40)
[2025-04-27 10:51] LABS: Influenza A, PCR NEGATIVE (NEGATIVE); Influenza B, PCR NEGATIVE (NEGATIVE); Resp Syncytial Virus, PCR NEGATIVE (NEGATIVE); SARS-Cov-2 (COVID-19) PCR, MMC NEGATIVE (NEGATIVE)
[2025-04-27] MEDS ORDERED: Labetalol HCL 5 MG/ML 4ML Injection (Single Dose) IV ONE (13:30)
[2025-04-27] MEDS ORDERED: HydrALAZINE HCl 20 MG / ML 1ML Vial IV PRN ×2 (16:05→19:15)
[2025-04-27 16:40] LABS: pH Blood Venous 7.47 (7.34-7.37)
[2025-04-27 17:11] VITALS: BP 152/71
[2025-04-27 17:21] LABS: Magnesium, Blood 1.2 mg/dL (1.6-2.4); Thyroid Stimulating Hormone 3.02 uIU/mL (0.360-4.800)
[2025-04-27 17:22] LABS: Phosphorus, Blood 3.0 mg/dL (2.5-4.9)
[2025-04-27] MEDS ORDERED: Magnesium Sulf 2 GM/Water 50ML 50 ML IV STA (18:43)
--- NOTE | 2025-04-27 19:43 | NUR ---
SHIFT SUMMARY- SEE ADMISSION- NEW ADMIT WILL HAVE CT TONGIGHT AND MRI TO EVALUATE FOR STROKE
[2025-04-27] MEDS ORDERED: NS 250 ML IV PRN (20:25)
[2025-04-27 20:36] VITALS: BP 163/89
[2025-04-27] MEDS ORDERED: Meropenem 2,000 MG in NS 250 ML IV SCH ×2 (21:00→23:12)
--- NOTE | 2025-04-27 22:15 | NUR ---
IV Meropenem -given late- Covering Primary RN for break. Discussed w/ Ranulfo in Pharmacy RE above d/t single IV access available among other things. OK to give late. No time adjustment needed.
--- NOTE | 2025-04-28 04:58 | NUR ---
SHIFT SUMMARY A&OX0. GAZE IS TO THE RIGHT AND HAVE TO WALK TO RIGHT SIDE OF BED FOR PT TO LOOK AT THIS RN. LEFT ARM APPEARS FLACID AND IF IS NOT ABLE TO MOVE IT AT WILL. LEFT LEFT APPREARS TO HAVE SOME INTERNAL ROTATION AND PT IS NOT ABLE TO MOVE THIS AD JUAN CARLOS WELL. PT IS VERY CONFUSED AND COULD ONLY STATE "I'M VERY SICK." GETS AGITATED EASILY WITH ANY TACTILE STIMULATION WHICH APPEARS TO BE DUE TO HER NOT UNDERSTANDING WHAT IS GOING ON. SergeMD IS CURRENTLY IN PLACE AND IS WORKING WELL. SHE HAD A DOSE OF MAG AND A ROUND OF ABX VIA IV AN TOLERATED BOTH WELL. SHE HAS BEEN ABLE TO REST THROUGHOUT THE NIGHT AND WAS TAKEN FOR A CT AT BEGINNING OF SHIFT. PT CURRENTLY SLEEPING IN BED AT LOWEST POSITION WITH CALL LIGHT WITH REACH, RAILS X2 AND BED ALARM ON.
[2025-04-28 07:17] LABS: BASOPHILS ABSOLUTE AUTO 0.02 K/mm3 (0.00-0.23); BASOPHILS PERCENT AUTO 0 % (0-2); EOSINOPHILS ABSOLUTE AUTO 0.00 K/mm3 (0.00-0.68); EOSINOPHILS PERCENT AUTO 0 % (0-6); Hematocrit 35.3 % (33.0-51.0); Hemoglobin 11.5 g/dL (11.5-16.0); IMMATURE GRAN ABSOLUTE AUTO 0.11 K/mm3 (0.00-0.10); IMMATURE GRAN PERCENT AUTO 1 % (0-1); LYMPHOCYTES ABSOLUTE AUTO 1.17 K/mm3 (0.84-5.20); LYMPHOCYTES PERCENT AUTO 7 % (21-46); MONOCYTES ABSOLUTE AUTO 1.51 K/mm3 (0.16-1.47); MONOCYTES PERCENT AUTO 9 % (4-13); Mean Corpuscular HGB Conc 32.6 g/dL (31.5-36.5); Mean Corpuscular Volume 88 fL (80-100); NEUTROPHILS ABSOLUTE AUTO 14.22 K/mm3 (1.96-9.15); NEUTROPHILS PERCENT AUTO 84 % (41-73); NRBC ABSOLUTE 0.00 K/mm3 (0.00-0.02); NRBC Auto 0.0 /100 WBC (0.0-0.2); Platelet Count 264 K/mm3 (150-400); RDW Coefficient Variation 16.8 % (11.7-14.2); RDW Standard Deviation 54.0 fL (35.1-46.3)
[2025-04-28 07:34] LABS: Alanine Aminotransfer (ALT/SGP 21.0 U/L (12-78); Albumin, Blood 3.2 g/dL (3.4-5.0); Albumin/Globulin Ratio 0.6 (0.8-1.8); Anion Gap 11.0 mmol/L (3-11); Aspartate Aminotrans (AST/SGOT 13.0 U/L (12-37); Bilirubin, Total 0.6 mg/dL (0.1-1.0); Blood Urea Nitrogen 19.0 mg/dL (8-24); CO2, Blood 26.0 mmol/L (21-32); Calcium, Blood 8.7 mg/dL (8.5-10.1); Chloride, Blood 97.0 mmol/L (98-108); Creatinine, Blood 0.82 mg/dL (0.40-1.00); Globulin, Blood 5.1 g/dL (2.2-4.0); Glucose, Blood 220.0 mg/dL (70-99); Potassium, Blood 3.3 mmol/L (3.5-5.5); Sodium, Blood 131.0 mmol/L (136-145); Total Protein, Blood 8.3 g/dL (6.4-8.2)
[2025-04-28 07:35] VITALS: BP 188/91
[2025-04-28] MEDS ORDERED: Enoxaparin 40 MG/0.4 ML SYR SC SCH (09:00)
--- NOTE | 2025-04-28 11:15 | NUR ---
CASE CONFERENCE WITH BEDSIDE RN. SPOKE WITH DTR, LETICIA VIA PHONE. PER DTR, PT IS NOWHERE NEAR BASELINE. PT USING RIGHT SIDE OF BODY ONLY. DTR REPORTS PT IS LEFT HAND DOMINANT. VERY VOCAL AND OPINIONATED, CHRONIC UTI'S IN THE LAST 6 MONTHS. USES A W/C ([employer] TRANSFER) AND HAS RECENTLY BECOME TO WEAK TO WHEEL HERSELF. STAFF [facility] HAVE BEEN WHEELING PT TO/FROM THE DINING ROOM FOR ALL MEALS. JOANNA LIVES IN THE [facility]. DTR REPORTS PT HAS A HX: SCHIZOPHRENIA THAT HAS BEEN MEDICALLY MANAGED WITH ORAL MEDICATIONS FOR GREATER THAN 15 YEARS. PT OCCATIONALLY HAS BOUTS OF INSOMNIA THAT REQUIRES MEDICATION ADJUSTMENTS. THIS PC RN REQUESTED MEDICATION LIST FROM [facility] THIS MORNING. RECONCILED RX LIST TO [facility]. BEDSIDE RN UPDATED. BEDSIDE RN CONTACTING PROVIDER FOR UPDATED RX ORDERS. PT IS STRICT NPO. DR. AREVALO REPORTS SHE SPOKE WITH DTR RE: GOC. IF NO IMPROVEMENT BY TOMORROW, WILL D/C ON HOSPICE.
--- NOTE | 2025-04-28 11:17 | NUR ---
NOTE CLARIFIED PT ATTENDING. CONTACTED DR AREVALO. SHE ATTENDS HER OWN PCP PT. SHE WILL BE HER SOON. TALKED WITH PALATIVE CARE PER DR AREVALO REQUEST. CARE ONGOING.
[2025-04-28 11:40] VITALS: BP 170/86
[2025-04-28] MEDS ORDERED: RISPERIDONE O0.25 MG SL (12:41)
[2025-04-28] MEDS ORDERED: HydrALAZINE HCl 20 MG / ML 1ML Vial IV PRN (13:10)
[2025-04-28 16:43] VITALS: BP 161/71
[2025-04-28] MEDS ORDERED: Ondansetron HCl 2 MG / ML 2ML Vial IV PRN (17:05)
[2025-04-28] MEDS ORDERED: Insulin Regular 100 UNIT/ML 10ML Vial SC SCH (18:00)
--- NOTE | 2025-04-28 18:00 | NUR ---
COMFORT CARE PT DAUGHTER AND SISTER EXPRESSED THE THIS NURSE AND KARTHIK HAMMOND RN THAT THEY WOULD LIKE PT TO BE COMFORT CARE CHARLETTE. MESSAGE LEFT FOR DR AREVALO. CARE ONGOING.
[2025-04-28] MEDS ORDERED: LORazepam 2 MG/ML 1ML Injection IV PRN (18:10)
[2025-04-28] MEDS ORDERED: Morphine Sulfate 20 MG/1ML 1 ML Oral Syringe SL PRN (18:10)
[2025-04-28] MEDS ORDERED: Acetaminophen 160MG / 5ML 10.15 UDC PO PRN (18:10)
[2025-04-28] MEDS ORDERED: Atropine Sulfate 1% Opth Soln 2ML BTL SL PRN (18:10)
--- NOTE | 2025-04-28 18:15 | NUR ---
NOTE RETURN CALL FROM DR AREVALO. ORDERS RECEIVED FOR COMFORT CARE. PT RESTING QUIETLY. ZOFRAN GIVEN IV X1. ORAL CAVITY WITH DRIED BLOOD. MULTIPLE ATTEMPTS TO DO ORAL CARE. FAMILY AWARE OF ORAL CARE ATTEMPTS. PT IS RESISTIVE AND CONCERN FOR ADDITIONAL ORAL TRAUMA HAS LIMITED STAFFS CARE TO HER LIPS. PT INCO NTINET OF BOWEL AND BL;ADDER. ATTENDS ON. PUREWICK WAS LEAKING. SKIN INTACT. NO REDNESS NOTED. UE/LE SUPPORTED WITH PILLOWS. ROM TO LEFT UE/LE DONE. PT COMPLETELY UNAWARE OF CONTACT TO HER LEFT SIDE. EVEN HER HAIR BEING COMBED. CARE ONGOING.
--- NOTE | 2025-04-28 23:36 | NUR ---
ATROPINE DROPS GIVEN PER EMAR ORDER PT LUNGS COURSE T/O RASPY GURGLE UPPER AIRWAY DECLINES SUCTIONING
[2025-04-29 05:02] VITALS: BP 127/62
--- NOTE | 2025-04-29 06:21 | NUR ---
SHIFT SUMMARY A&OX4. ABLE TO MAKE NEEDS KNOWN. WAS UP IN CHAIR AT START OF SHIFT AND WAS TRANSFERRED TO BED PER HER REQUEST. SHE TOLERATED THIS WELL BUT PAIN INCREASED WITH AMULATION. EDUCATED ON IMPORTANCE OF MANAGING PAIN AND NOT LETTING IT GET TOO HIGH BECAUSE IT WILL BE HARD TO GET IT BACK UNDER CONTROL. PT V/U. PT RECEIVED PAIN MEDICATION AND MUSCLE RELAXERS PER EMAR AND WAS ABLE TO REST COMFORTABLY. NO NEW CHANGES OVER NIGHT. Missingames HAS WORKED WELL THROUGHOUT THE NIGHT. PT CURRENTLY SITTING UP IN BED WATCHING TV AND DRINKING COFFE WITH BED IN LOWEST POSITION AND CALL LIGHT WITHIN REACH.
--- NOTE | 2025-04-29 06:28 | NUR ---
SHIFT SUMMARY A&OX0. PT RESPONDS TO VERBAL AND TACTILE STIMULATION BUT IS VERY RESISTANT TO CARE. ATTEMPTED ORAL CARE MULTIPLE TIMES BUT PT WOULD SWAT AT THIS RN AND PUSH THIS RNS HAND AWAY. SHE IS ABLE TO TRACK TO HER LEFT TODAY BUT THE LUE AND LLL CONTINUE TO BE FLACID. PT HAS BEEN REPOSITIONED Q 2 HOURS. SHE HAS RESTED COMFORTABLY THROUGHOUT THE NIGHT. ATROPINE DROPS WERE GIVEN FOR LUNG SECRETIONS AND THIS APPEARED TO HELP. CURRENTLY SHE IS SLEEPING IN HER BED IN LOWEST POSITION WITH CALL LIGHT WITHIN REACH.
[2025-04-29 07:29] VITALS: BP 125/57
--- NOTE | 2025-04-29 07:58 | NUR ---
CODE STATUS CHANGED TO DNR. PT IS ON COMFORT CARE.
[2025-04-29] MEDS ORDERED: Pantoprazole Sodium 40 MG Injection IV SCH (09:00)
[2025-04-29] MEDS ORDERED: HydrALAZINE HCl 20 MG / ML 1ML Vial IV PRN (15:20)
[2025-04-29] MEDS ORDERED: Morphine Sulfate 20 MG/1ML 1 ML Oral Syringe PO PRN (15:20)
--- NOTE | 2025-04-29 17:38 | NUR ---
PATIENT PASSED BEDSIDE SWALLOW EVAL . TT DR RDORIGUEZ AND NEW ORDERS RECEIVED. PATIENT STILL STRONGLY REFUSING ALL CARE INCLUDING VITALS AND ALL PERSONAL HYGIENE. REFUSING TO TAKE MEDICATION. PATIENT IS NOW OFF COMFORT CARE. ALERT TO SELF AND PLACE. ABLE TO MOVE ALL EXTREMITIES. UNABLE OR REFUSING TO VOICE NEEDS AT TIME.
[2025-04-29] MEDS ORDERED: Insulin Regular 100 UNIT/ML 10ML Vial SC SCH (18:00)
--- NOTE | 2025-04-29 20:03 | NUR ---
PT A7OX4 TO PERSON, PLACE AND DATE PT IS REFUSING ALL CARE AND WHEN STAFF COEM INTO ROOM SHE SAYS "LEAVE ME ALONE AND DONT TOUCH ME" PT C/O PAIN IN HER NECK, SHE WAS REPOSITIONED SLIGHTLY AND REFUSED ANY MEDICATION, MOUTH CARE, WARM BLANKET, VITAL SIGNS, CBGS. EXPLAINED TO PT LONNIE IMPORTANCE OF HAVING THESE DONE AND SHE VERBALIZED UNDERSTADNING AND CONTINUED TO REFUSE ALL CARE AT THIS TIME.
--- NOTE | 2025-04-30 06:09 | NUR ---
PT CONTINUED TO REFUSE ALL CARE EXCEPT IV ANTIBIOTICS. HAD INCONTINENT BM AND URINE.
[2025-04-30] MEDS ORDERED: Enoxaparin 40 MG/0.4 ML SYR SC SCH (09:00)
[2025-04-30] MEDS ORDERED: Lactobacil 2-S.Thermo-Bifido 1 1 Cap PO SCH (09:00)
[2025-04-30] MEDS ORDERED: Insulin Regular 100 UNIT/ML 10ML Vial SC SCH (11:30)
--- NOTE | 2025-04-30 18:58 | NUR ---
SHIFT SUMMARY PT IS A/OX3, CONFUSION TO CURRENT SITUATION. BEDREST AT THIS TIME, 2 PERSON ASSIST WITH TURNS. PT CONTINUES TO REFUSE ALL CARE THROUGHOUT THIS SHIFT EXCEPT ANTIBIOTICS AND THE BABY ASPRIN. PT IS INCONT OF BOWELS AND BLADDER, ATTENDS IN PLACE AND CHANGED NEEDED. DAUGHTER AT BEDSIDE THIS AFTERNOON.
--- NOTE | 2025-05-01 04:49 | NUR ---
SHIFT SUMMARY CONTACT PRECAUTIONS FOR ESBL UTI. CONTINUES TO SAY NO TO MOST CARE, DOES ALLOW LINEN/BRIEF CHANGES. DID GIVE MERROPENEM IV IN RFA IV, CONTINUOUS NS RUNNING AT KVO. PT DECLINES ANALGESIA AVAILABLE PER EMAR, DOES NOT ALLOW REPOSITIONING OF NECK. REMAINS INCONTINENT OF BOWEL/BLADDER, USING PUREWICK. HAS BLANCHABLE ERYTHEMA ON PRESSURE-BEARING AREAS, BUT NO SKIN BREAKDOWN. PT REPETITIVE IN STATING HER "CLOCK STOPPED WORKING," AND COMMUNICATED HAVING VISUAL HALLUCINATION OF SMOKING A CIGARETTE AND THAT IT CAUGHT SOMETHING ON FIRE. DID NOT USE PROFANITY OR SWING ARMS/LEGS AT STAFF THIS EVENING, THOUGH IS IRRITABLE AND INCONSOLABLE.
[2025-05-01] MEDS ORDERED: Cholecalciferol 1000 Unit Tablet (=25MCG) PO SCH (09:00)
[2025-05-01 12:10] VITALS: BP 188/75
[2025-05-01 14:21] LABS: BASOPHILS ABSOLUTE AUTO 0.04 K/mm3 (0.00-0.23); BASOPHILS PERCENT AUTO 0 % (0-2); EOSINOPHILS ABSOLUTE AUTO 0.06 K/mm3 (0.00-0.68); EOSINOPHILS PERCENT AUTO 0 % (0-6); Hematocrit 36.5 % (33.0-51.0); Hemoglobin 11.5 g/dL (11.5-16.0); IMMATURE GRAN ABSOLUTE AUTO 0.16 K/mm3 (0.00-0.10); IMMATURE GRAN PERCENT AUTO 1 % (0-1); LYMPHOCYTES ABSOLUTE AUTO 1.38 K/mm3 (0.84-5.20); LYMPHOCYTES PERCENT AUTO 7 % (21-46); MONOCYTES ABSOLUTE AUTO 1.13 K/mm3 (0.16-1.47); MONOCYTES PERCENT AUTO 6 % (4-13); Mean Corpuscular HGB Conc 31.5 g/dL (31.5-36.5); Mean Corpuscular Volume 91 fL (80-100); NEUTROPHILS ABSOLUTE AUTO 15.89 K/mm3 (1.96-9.15); NEUTROPHILS PERCENT AUTO 85 % (41-73); NRBC ABSOLUTE 0.00 K/mm3 (0.00-0.02); NRBC Auto 0.0 /100 WBC (0.0-0.2); Platelet Count 236 K/mm3 (150-400); RDW Coefficient Variation 16.1 % (11.7-14.2); RDW Standard Deviation 54.3 fL (35.1-46.3)
[2025-05-01 14:43] LABS: Anion Gap 10.0 mmol/L (3-11); Blood Urea Nitrogen 27.0 mg/dL (8-24); CO2, Blood 27.0 mmol/L (21-32); Calcium, Blood 9.2 mg/dL (8.5-10.1); Chloride, Blood 101.0 mmol/L (98-108); Creatinine, Blood 0.84 mg/dL (0.40-1.00); Glucose, Blood 183.0 mg/dL (70-99); Potassium, Blood 3.2 mmol/L (3.5-5.5); Sodium, Blood 135.0 mmol/L (136-145)
[2025-05-01 15:45] VITALS: BP 187/84
--- NOTE | 2025-05-01 18:46 | NUR ---
SHIFT SUMMARY PT IS A/O TO SELF AND PERSON. VISUAL HALLUCINATIONS ASSESSED THROUGHOUT THIS SHIFT. BEDREST AT THIS TIME. PT CONTINUES TO REFUSE CARE AT TIMES, HOWEVER WITH IMPROVEMENT IN COOPERATION OF CARE COMPARED TO YESTERDAY. DAUGHTER AT BEDSIDE THIS AFTERNOON.
--- NOTE | 2025-05-01 22:39 | NUR ---
PER ELLE SR VICE PRESIDENT PATIENT MAY HAVE ONE MORE ONE TIME DOSE OF 1MG ATIVAN IF NEEDED TONIGHT.
[2025-05-01] MEDS ORDERED: LORazepam 2 MG/ML 1ML Injection IV ONE (22:40)
[2025-05-02 03:48] VITALS: BP 187/82
--- NOTE | 2025-05-02 06:18 | NUR ---
SHIFT SUMMARY PT A&O TO SELF AND PERSON, CONFUSED ABOUT TIME, PLACE, AND SITUATION. PT EXPRESSES THROGUH SHIFT THAT SHE WANTS TO GO BACK TO ROOM 203. PT EXPLAINED THAT SHE WAS IN A NEW ROOM, HER FAMILY WAS AWARE, AND THAT SHE WAS IN THE CORRECT BED. PT MINIMALLY REDIRECTABLE. PT REFUSES SOME CARE, CBG OBTAINED BUT PT REFUSED FURTHER CARE. PT REFUSED VITALS. PT REPOSITIONED Q2HRS AND BRIEF CHECKED AND CHANGED PRN. NO COMPLAINTS OF CP/PRESSURE OR SOB. PT SPENT MOST OF SHIFT IN BED WITH SOME ANXIETY. PT ABLE TO SLEEP AROUND 0500 AND UNINTERUPTED REST UTELIZED DUE TO CONSTITUTIONAL LAW PROFESSOR REPORT THAT PT HAS NOT HAD MUCH SLEEP FOR THE LAST 3 NIGHTS. NO ACUTE EVENTS DURING SHIFT. FALL PRECAUTIONS IN PLACE, BED IN LOW POSITION, BED ALARM ENABLED, CALL LIGHT IN REACH.
--- NOTE | 2025-05-02 17:21 | NUR ---
End of shift summary: Patient is alert and oriented to self and person only; remains confused and refusing care/meds at times. Patient incontinent and changed today with need of 2 person assist. Denies SOB, CP or pressure, N/V/D or pain today. All medications administered per EMAR as allowed. Bed in lowest position, call light within reach and alarm in place for safety. Will continue to monitor until next shift nurse arrives and report is given.
--- NOTE | 2025-05-02 21:27 | NUR ---
PATIENT CONFUSED AND IRRITABLE. REFUSING VITALS AND SOME PO MEDICATION. IV ABX INFUSED. BED ALARM.
--- NOTE | 2025-05-03 04:09 | NUR ---
SHIFT SUMMARY PATIENT IRRITABLE AND UNCOOPERATIVE WITH CARE. REFUSED VITALS, CBG CHECKS, AND SOME PO MEDS. AXOX 2 AND BEDREST. WANTED TO SLEEP. DENIES CHEST PAIN, SOB, AND N/V. PIV INTACT. IV ABX INFUSED. CALL LIGHT IN REACH. BED IN LOWEST POSITION AND ALARM ON. WILL CONTINUE TO MONITOR UNTIL DAY SHIFT NURSE ASSUMES CARE.
[2025-05-03 07:48] VITALS: BP 201/93
[2025-05-03 08:14] VITALS: BP 175/97
[2025-05-03 09:55] VITALS: BP 167/74
[2025-05-03 15:53] VITALS: BP 149/68
--- NOTE | 2025-05-03 17:22 | NUR ---
DAY SHIFT SUMMARY: PATIENT HYPERTENSIVE, TOOK ALL HER SCHEDULED MEDS THIS SHIFT. THOUGH REFUSED AM LAB DRAWN, OT AND SOME OF HER REPOSITIONING IN BED. PATIENT IS A FEED ASSIST, VERY POOR APPETITE; ATE COUPLE BITES FOR BREAKFAST AND 3 BITES FOR LUNCH. PATIENT EXPRESSES SHE DOES NOT LIKE HER PUREED TEXTURE DIET. DR. AREVALO NOTIFIED DURING MORNING ROUNDING. PATIENT INCONTINENT OF BLADDER, ATTENDS IN PLACED AND CHANGED PRN. PATIENT A/O TO SELF AND PERSON, CONFUSED, APPEARS WITHDRAWN, FLAT AFFECT AND LABILE MOOD. BED IN LOWEST POSITION, ALARM ON FOR SAFETY. CALL LIGHT IN REACH.
[2025-05-03 20:29] VITALS: BP 145/79
--- NOTE | 2025-05-04 04:04 | NUR ---
SHIFT SUMMARY PATIENT REFUSED PO MEDICATION. ALERT TO SELF AND BEDREST. PIV INTACT. IV ABX INFUSED. REFUSING SOME CARE. DENIES CHEST PAIN, SOB, AND N/V. VSS/AFEBRILE. SLEPT MOST OF THE SHIFT. CALL LIGHT IN REACH. BED IN LOWEST POSITION AND ALARMED. WILL CONTINUE TO MONITOR UNTIL DAY SHIFT NURSE ASSUMES CARE.
[2025-05-04 07:19] LABS: BASOPHILS ABSOLUTE AUTO 0.03 K/mm3 (0.00-0.23); BASOPHILS PERCENT AUTO 0 % (0-2); EOSINOPHILS ABSOLUTE AUTO 0.34 K/mm3 (0.00-0.68); EOSINOPHILS PERCENT AUTO 4 % (0-6); Hematocrit 31.9 % (33.0-51.0); Hemoglobin 10.1 g/dL (11.5-16.0); IMMATURE GRAN ABSOLUTE AUTO 0.04 K/mm3 (0.00-0.10); IMMATURE GRAN PERCENT AUTO 0 % (0-1); LYMPHOCYTES ABSOLUTE AUTO 2.23 K/mm3 (0.84-5.20); LYMPHOCYTES PERCENT AUTO 23 % (21-46); MONOCYTES ABSOLUTE AUTO 0.80 K/mm3 (0.16-1.47); MONOCYTES PERCENT AUTO 8 % (4-13); Mean Corpuscular HGB Conc 31.7 g/dL (31.5-36.5); Mean Corpuscular Volume 91 fL (80-100); NEUTROPHILS ABSOLUTE AUTO 6.22 K/mm3 (1.96-9.15); NEUTROPHILS PERCENT AUTO 64 % (41-73); NRBC ABSOLUTE 0.00 K/mm3 (0.00-0.02); NRBC Auto 0.0 /100 WBC (0.0-0.2); Platelet Count 247 K/mm3 (150-400); RDW Coefficient Variation 16.5 % (11.7-14.2); RDW Standard Deviation 55.9 fL (35.1-46.3)
[2025-05-04 07:32] LABS: Anion Gap 8.0 mmol/L (3-11); Blood Urea Nitrogen 37.0 mg/dL (8-24); CO2, Blood 29.0 mmol/L (21-32); Calcium, Blood 8.9 mg/dL (8.5-10.1); Chloride, Blood 103.0 mmol/L (98-108); Creatinine, Blood 0.93 mg/dL (0.40-1.00); Glucose, Blood 122.0 mg/dL (70-99); Potassium, Blood 3.4 mmol/L (3.5-5.5); Sodium, Blood 137.0 mmol/L (136-145)
[2025-05-04 08:18] VITALS: BP 189/79
--- NOTE | 2025-05-04 10:20 | NUR ---
rounded on patient. she was awake, requesting her call light. therpautic conversation
[2025-05-04 15:00] VITALS: BP 147/71
--- NOTE | 2025-05-04 17:11 | NUR ---
End of shift summary: Patient is alert to self and situation; pleasant today, but still refused some medications this shift. PT/OT attempted to see patient today and minimal completed. All medications administered per EMAR. No acute changes this shift. Denies SOB, CP or pressure, N/V or pain today and none noted. Bed in lowest position and call light within reach. Will continue to monitor until next shift nurse arrives and report is given.
[2025-05-04 19:25] VITALS: BP 158/82
--- NOTE | 2025-05-05 06:50 | NUR ---
Shift Summary Pt AOx1-2 refusing some pt care and medications. Incontinent voids, attends changed PRN. Pt remained in bed t/o the shift, no bed alarm triggers. Pt was able to sleep t/o most of the night.
[2025-05-05 07:30] VITALS: BP 161/82
[2025-05-05 15:59] VITALS: BP 177/70
--- NOTE | 2025-05-05 18:11 | NUR ---
End of shift summary: Patient is alert and oriented to self and family; still refused some care today and did have mild hallucinations voiced. Patient denies SOB, CP or pressure, N/V/D or pain today, but did state some dizziness and new orders obtained for PRN. All medications administered per EMAR. Plan for discharge back to [facility] possibly Wednesday. Call light within reach, bed in lowest in position. Will continue to monitor until next shift nurse arrives and report is given.
[2025-05-05 19:27] VITALS: BP 151/128
[2025-05-06 05:23] VITALS: BP 166/69
--- NOTE | 2025-05-06 06:30 | NUR ---
Shift Summary Pt having hallucinations on and off t/o shift. She is able to be oriented to the fact that they are hallucinations. She slept well t/o most of the night. Attends changed PRN. Meds taken with apple sauce. AOx1-2.
[2025-05-06 06:34] LABS: Anion Gap 8.0 mmol/L (3-11); Blood Urea Nitrogen 30.0 mg/dL (8-24); CO2, Blood 30.0 mmol/L (21-32); Calcium, Blood 9.3 mg/dL (8.5-10.1); Chloride, Blood 100.0 mmol/L (98-108); Creatinine, Blood 0.8 mg/dL (0.40-1.00); Glucose, Blood 145.0 mg/dL (70-99); Potassium, Blood 4.1 mmol/L (3.5-5.5); Sodium, Blood 134.0 mmol/L (136-145)
[2025-05-06 07:41] VITALS: BP 153/72
[2025-05-06 16:07] VITALS: BP 168/80
--- NOTE | 2025-05-06 17:07 | NUR ---
End of shift summary: Patient is alert to self and family; awake all day today with visitors throughout the day. Patient more open to care and worked with OT today and was OOB to BSC. Patient with no acute changes this shift. All medication administered per EMAR as patient allowed. Bed in lowest position, call light within reach. Will continue to monitor until next shift nurse arrives and report is given.
[2025-05-06 19:24] VITALS: BP 157/76
--- NOTE | 2025-05-07 03:53 | NUR ---
SHIFT SUMMARY: PT IS AO TO SELF. PT USES CALL LIGHT BUT THEN QUICKLY FORGETS WHY SHE HIT SAID CALL LIGHT. PT HALLUCINATING SPIDERS ON THE [place]. PT WAS THEN REORIENTED AND TOLD THAT SHE WAS IN THE HOSPITAL AND THAT THERE WERE NO SPIDERS ON THE [facility]. PT TAKES MED CRUSHED IN APPLE SAUCE DUE TO SWALLING ISSUES. PT IS INCONT OF URINE AND STOOL. PT REFUSES CARE AND EDUCATED ON THE IMPORTANCE OF LETTING US CHANGE HER AND REPOSITING TO PREVENT BED SORES.
[2025-05-07 04:02] VITALS: BP 153/73
[2025-05-07 07:25] VITALS: BP 126/68
--- NOTE | 2025-05-07 10:15 | NUR ---
CARE CONFERENCE WITH PROVIDER AND CM. PLAN IS FOR PT TO D/C BACK TO [facility] TODAY 05/07/25. [facility] ADMISSION SCHEDULED FOR 05/08/25.
[2025-05-07] MEDS ORDERED: LISI20 PO (13:50)
[2025-05-07] MEDS ORDERED: AMLO5 PO (13:53)
[2025-05-07] MEDS ORDERED: ASPI81CH PO (13:53)
[2025-05-07] MEDS ORDERED: MECL25 PO (13:54)
--- NOTE | 2025-05-07 15:27 | NUR ---
DISCHARGE NOTE- PT DAUGHTER PRESENT FOR DISCHARGE TEACHING AND ACKNOWLEDGED UNDERSTANDING OF VERBAL AND WRITTEN DISCHARGE INSTRUCTIONS, IV DC'D PRIOR TO DISCHARGE. PT WAS TAKEN VIA WC TRANSPORT BACK [facility]. NO S&S OF DISTRESS NOTED AT THE TIME OF DISCHARGE.
== END 2025-05-07 14:19 | disposition hospice, home (50) | DRG 64 ==
LOC: ER 08:16 → MEDS 12:39
PROVIDERS: Family Medicine; Student in an Organized Health Care Education/Training Program; ADMIT Family Medicine
DX: I63.9 Cerebral infarction, unspecified (principal); A41.9 Sepsis, unspecified organism; G93.41 Metabolic encephalopathy; R65.20 Severe sepsis without septic shock; N39.0 Urinary tract infection, site not specified; E87.1 Hypo-osmolality and hyponatremia; G81.94 Hemiplegia, unspecified affecting left nondominant side; R47.01 Aphasia; Z66 Do not resuscitate; F32.A Depression, unspecified; E03.9 Hypothyroidism, unspecified; I12.9 Hypertensive chronic kidney disease with stage 1 through stage 4 chronic kidney disease, or unspecified chronic kidney disease; E11.22 Type 2 diabetes mellitus with diabetic chronic kidney disease; N18.30 Chronic kidney disease, stage 3 unspecified; F03.90 Unspecified dementia, unspecified severity, without behavioral disturbance, psychotic disturbance, mood disturbance, and anxiety; R29.810 Facial weakness; R13.10 Dysphagia, unspecified; E87.6 Hypokalemia; R44.1 Visual hallucinations; Z86.73 Personal history of transient ischemic attack (TIA), and cerebral infarction without residual deficits; Z87.891 Personal history of nicotine dependence; Z88.0 Allergy status to penicillin; Z88.8 Allergy status to other drugs, medicaments and biological substances; Z91.048 Other nonmedicinal substance allergy status; Z79.899 Other long term (current) drug therapy; Z79.84 Long term (current) use of oral hypoglycemic drugs; Z79.890 Hormone replacement therapy
CPT/HCPCS: 36415; 70450; 71045; 80048; 80053; 81001; 82533; 82803; 82947; 83605; 83735; 84100; 84439; 84443; 84481; 85025; 87040; 87077; 87086; 87186; 87637; 93005; 93010; 96374-59; 96375-59; 97110; 97161; 97165; 97530; 97535; 99285-25; A9270; J0360; J1650; J1815; J2060; J2185; J2250; J2405; J3475; J3480; J7030; J7050